=== PATIENT | female | born 1960 | race Hispanic/Latino ===

== ENCOUNTER 2019-04-17 23:46 | Emergency (ER) | payer OTHER ==
[2019-04-18] MEDS ORDERED: KETOROLAC TROMETHAMINE 30MG/ML ONE (00:32)
[2019-04-18] MEDS ORDERED: AMOXICILLIN 500 MG CAPSULE PO ONE (00:32)
== END 2019-04-18 01:49 | disposition home or self-care (01) ==
LOC: EDH 23:46
DX: K04.7 Periapical abscess without sinus (principal); Z98.890 Other specified postprocedural states
CPT/HCPCS: 96372; 99283; J1885

== ENCOUNTER 2019-08-04 23:18 | Emergency (ER) | payer OTHER ==
[2019-08-05] MEDS ORDERED: SODIUM CHLORIDE 0.9% 1000ML 1,000 ML IV ONE (00:38)
[2019-08-05 00:39] LABS: BASOPHILS % (AUTO) 0.9 % (0.0-5.0); EOSINOPHILS % (AUTO) 0.2 % (0.0-8.0); HEMATOCRIT 37.2 % (36-48); LYMPHOCYTES % (AUTO) 36.8 % (21.0-51.0); MEAN CORPUSCULAR HEMOGLOBIN 30.4 pg (27.0-33.0); MEAN CORPUSCULAR HGB CONC 34.5 g/dL (32.0-36.0); MEAN CORPUSCULAR VOLUME 88.2 fL (79-99); MONOCYTES % (AUTO) 6.8 % (3.0-13.0); NEUTROPHILS % (AUTO) 55.3 % (40.0-77.0); NUCLEATED RED BLOOD CELLS 0.1 % (0.0-0.19); PLATELET COUNT (AUTO) 301 K/uL (130-400); RED BLOOD CELL COUNT(AUTO) 4.22 MIL/uL (4.00-5.50); RED CELL DISTRIBUTION WIDTH 13.6 % (11.0-15.5); WHITE BLOOD COUNT (AUTO) 10.3 K/uL (4.8-10.8)
[2019-08-05 00:46] LABS: CREATININE 0.6 mg/dL (0.5-1.5); POTASSIUM 3.7 mmol/L (3.5-5.1)
[2019-08-05 00:47] LABS: APPEARANCE,URINE Clear (CLEAR); BILIRUBIN,URINE Negative (NEGATIVE); COLOR,URINE Yellow (YELLOW); GLUCOSE, URINE (UA) Negative (NEGATIVE); KETONES,URINE Negative (NEGATIVE); LEUKOCYTE ESTERASE ,URINE Negative (NEGATIVE); NITRATE,URINE Negative (NEGATIVE); OCCULT BLOOD,URINE Negative (NEGATIVE); PROTEIN,URINE Negative (NEGATIVE)
[2019-08-05 00:51] LABS: ALBUMIN 3.7 g/dL (3.5-5.0); BILIRUBIN,TOTAL 0.4 mg/dL (0.2-1.0); TOTAL PROTEIN, SERUM 7.3 g/dL (6.0-8.3)
[2019-08-05] MEDS ORDERED: IOHEXOL-350 75 ML VIAL IV ONE (01:09)
== END 2019-08-05 02:18 | disposition home or self-care (01) ==
LOC: EDH 23:18
DX: K43.9 Ventral hernia without obstruction or gangrene (principal); N83.202 Unspecified ovarian cyst, left side; Z72.0 Tobacco use
CPT/HCPCS: 36415; 74177; 80053; 81003; 83690; 85025; 99285; J7030; Q9967

== ENCOUNTER 2019-08-22 00:19 | Emergency (ER) | payer OTHER ==
[2019-08-22] MEDS ORDERED: KETOROLAC TROMETHAMINE 30MG/ML ONE (00:47)
[2019-08-22] MEDS ORDERED: ORPHENADRINE CITRATE 30 MG/ML ML ONE (00:47)
[2019-08-22] MEDS ORDERED: HYDROCODONE/ACETAMINOPHEN 10/325 MG TAB ONE (00:48)
== END 2019-08-22 02:09 | disposition home or self-care (01) ==
LOC: EDH 00:19
DX: M54.12 Radiculopathy, cervical region (principal)
CPT/HCPCS: 72040; 93005; 96374; 96375; 99284; J1885; J2360

== ENCOUNTER 2019-10-31 05:35 | Day surgery (SDC) | payer OTHER ==
[2019-10-30 17:15] LABS: BASOPHILS % (AUTO) 0.5 % (0.0-5.0); EOSINOPHILS % (AUTO) 0.2 % (0.0-8.0); HEMATOCRIT 38.3 % (36-48); LYMPHOCYTES % (AUTO) 39.5 % (21.0-51.0); MEAN CORPUSCULAR HEMOGLOBIN 28.4 pg (27.0-33.0); MEAN CORPUSCULAR HGB CONC 31.6 g/dL (32.0-36.0); MEAN CORPUSCULAR VOLUME 89.9 fL (79-99); MONOCYTES % (AUTO) 6.1 % (3.0-13.0); NEUTROPHILS % (AUTO) 53.5 % (40.0-77.0); PLATELET COUNT (AUTO) 330 K/uL (130-400); RED BLOOD CELL COUNT(AUTO) 4.26 MIL/uL (4.00-5.50); WHITE BLOOD COUNT (AUTO) 9.4 K/uL (4.8-10.8)
[2019-10-30 17:40] VITALS: BP 149/82
[~2019-10-31] VITALS: Ht 154.9 cm; Wt 73.0 kg
[2019-10-31] VITALS (15 sets, daily range): BP systolic 123–186; BP diastolic 60–77
[2019-10-31] MEDS ORDERED: LACTATED RINGERS 1000ML 1,000 ML IV SCH (06:00)
[2019-10-31] MEDS ORDERED: LIDOCAINE PF 2% 5ML ABBOJECT ONE (10:07)
[2019-10-31] MEDS ORDERED: ONDANSETRON HCL 4 MG/2 ML VIAL ONE (10:07)
[2019-10-31] MEDS ORDERED: GLYCOPYRROLATE 1 MG/5 ML SYRINGE ONE (10:08)
[2019-10-31] MEDS ORDERED: ROCURONIUM 10MG/1ML SYR 10 MG/ML ML ONE (10:08)
[2019-10-31] MEDS ORDERED: MIDAZOLAM HCL 1 MG/ML 2ML VIAL ONE (10:08)
[2019-10-31] MEDS ORDERED: PROPOFOL 10 MG/ML 20ML VIAL IV ONE (10:08)
[2019-10-31] MEDS ORDERED: DEXAMETHASONE SOD PHOSPHATE 10MG/ML 1ML VIAL ONE (10:08)
[2019-10-31] MEDS ORDERED: NEOSTIGMINE 5MG/5ML SYR IV ONE (10:08)
[2019-10-31] MEDS ORDERED: FENTANYL CITRATE PF 50 MCG/1 ML 5ML AMP IV ONE (10:09)
[2019-10-31] MEDS ORDERED: EPHEDRINE SULFATE 50 MG/ML AMPULE ONE (10:28)
[2019-10-31] MEDS ORDERED: SUGAMMADEX SODIUM 200 MG/2 ML VIAL IV ONE (11:13)
[2019-10-31] MEDS ORDERED: RACEPINEPHRINE HCL 2.25% 0.5 ML NEB SOLN ONE (11:16)
[2019-10-31] MEDS ORDERED: MEPERIDINE-PF 25 MG/ML SYG ONE ×2 (11:29→11:41)
== END 2019-10-31 12:54 | disposition home or self-care (01) ==
LOC: DAH 05:35
PROVIDERS: ATTEND Obstetrics & Gynecology
DX: R19.09 Other intra-abdominal and pelvic swelling, mass and lump (principal); D25.9 Leiomyoma of uterus, unspecified; Z98.890 Other specified postprocedural states
CPT/HCPCS: 36415; 49320; 85025; 86850; 86900; 86901; 94640; A4215 ×2; A4221; A4222; A4223; A4351; A4510; A4600; A4606; A4649; A4663; A6260; C1769 ×2; J1100; J2001; J2175 ×2; J2250; J2405; J2704; J2710; J3010; J3490 ×2; J7120

== ENCOUNTER 2019-12-19 05:30 | Observation (INO) | payer OTHER ==
[2019-12-18 16:10] VITALS: BP 131/85
[2019-12-18 16:35] LABS: BASOPHILS % (AUTO) 0.8 % (0.0-5.0); EOSINOPHILS % (AUTO) 0.1 % (0.0-8.0); HEMATOCRIT 38.2 % (36-48); LYMPHOCYTES % (AUTO) 40.3 % (21.0-51.0); MEAN CORPUSCULAR HEMOGLOBIN 28.7 pg (27.0-33.0); MEAN CORPUSCULAR HGB CONC 32.2 g/dL (32.0-36.0); MEAN CORPUSCULAR VOLUME 89.3 fL (79-99); NEUTROPHILS % (AUTO) 52.6 % (40.0-77.0); PLATELET COUNT (AUTO) 322 K/uL (130-400); RED BLOOD CELL COUNT(AUTO) 4.28 MIL/uL (4.00-5.50); RED CELL DISTRIBUTION WIDTH 13.2 % (11.0-15.5); WHITE BLOOD COUNT (AUTO) 8.6 K/uL (4.8-10.8)
[~2019-12-19] VITALS: Ht 154.9 cm; Wt 73.3 kg
[2019-12-19] VITALS (24 sets, daily range): BP systolic 129–153; BP diastolic 63–78
[~2019-12-19 05:30] MED LIST: LACTATED RINGERS 1000ML 1,000 ML IV SCH
[2019-12-19] MEDS: CEFAZOLIN SODIUM 1 GM VIAL ONE ×2 (06:49→07:30)
--- NOTE | 2019-12-19 06:49 | NUR ---
antibiotics taken with pt to or
[2019-12-19] MEDS ORDERED: MIDAZOLAM HCL 1 MG/ML 2ML VIAL ONE (07:20)
[2019-12-19] MEDS ORDERED: ONDANSETRON HCL 4 MG/2 ML VIAL ONE (07:20)
[2019-12-19] MEDS ORDERED: LIDOCAINE PF 2% 5ML ABBOJECT ONE (07:23)
[2019-12-19] MEDS ORDERED: ROCURONIUM 10MG/1ML SYR 10 MG/ML ML ONE (07:24)
[2019-12-19] MEDS ORDERED: FENTANYL CITRATE PF 50 MCG/1 ML 2ML VIAL ONE ×2 (07:24→08:23)
[2019-12-19] MEDS ORDERED: PROPOFOL 10 MG/ML 20ML VIAL IV ONE (07:24)
[2019-12-19] MEDS ORDERED: KETAMINE 50MG/ML SYRINGE 50 MG/ML DISP.SYRIN IV ONE (07:33)
[2019-12-19] MEDS ORDERED: EPHEDRINE SULFATE 50 MG/ML AMPULE ONE (07:39)
[2019-12-19] MEDS ORDERED: MAGNESIUM SULFATE 4.06 MEQ/ML ***TPN USE ONLY IJ ONE (07:44)
[2019-12-19] MEDS ORDERED: NEOSTIGMINE 5MG/5ML SYR IV ONE (08:54)
[2019-12-19] MEDS ORDERED: GLYCOPYRROLATE 1 MG/5 ML SYRINGE ONE (08:54)
[2019-12-19] MEDS ORDERED: FENTANYL CITRATE PF 50 MCG/1 ML 5ML AMP IV ONE (08:55)
[2019-12-19] MEDS ORDERED: BISACODYL 10 MG SUPP.RECT RC PRN (10:45)
[2019-12-19] MEDS ORDERED: ONDANSETRON HCL 4 MG/2 ML VIAL IVP PRN (10:45)
[2019-12-19] MEDS ORDERED: IBUPROFEN 600 MG TABLET PO PRN (10:45)
[2019-12-19] MEDS ORDERED: PROMETHAZINE HCL 25 MG/ML 1ML AMPULE IM PRN (10:45)
[2019-12-19] MEDS ORDERED: MEPERIDINE-PF 75 MG/ML SYG IM PRN (10:45)
[2019-12-19] MEDS: DEXTROSE 5 %-0.45 % NACL 1,000 ML IV PRN ×2 (11:21→17:21)
[2019-12-19] MEDS ORDERED: PHARMACY COMMUNICATION MISC SCH (11:45)
[2019-12-19] MEDS: PROMETHAZINE HCL 25 MG/ML 1ML AMPULE IM PRN ×2 (12:04→19:46)
[2019-12-19] MEDS ORDERED: MEPERIDINE-PF 100 MG/ML SYG IM ONE (12:50)
[2019-12-19] MEDS: ACETAMINOPHEN-CODEINE 300/30MG TAB PO PRN (15:58)
--- NOTE | 2019-12-19 17:25 | NUR ---
PATIENT C/O HEADACHE. BP CHECKED: 143/64COLD PACK GIVEN AND PLACED BEHIND NECK. LIGHTS DIMMED AND TV VOLUME LOWERED. PATIENT STATES SHE IS GOING TO TRY TO EAT. CALL LIGHT LEFT IN REACH ADVISED PATIENT TO CALL WITH ANY NEEDS OR CONCERNS.
[2019-12-19] MEDS ORDERED: MEPERIDINE-PF 100 MG/ML SYG ONE (19:33)
[2019-12-20] MEDS: DOCUSATE SODIUM 100 MG CAP PO PRN ×2 (00:05→08:59)
[2019-12-20] MEDS: SIMETHICONE 80 MG TAB.CHEW PO PRN ×2 (00:05→08:59)
[2019-12-20] MEDS: ACETAMINOPHEN-CODEINE 300/30MG TAB PO PRN (00:09)
[2019-12-20] MEDS: DEXTROSE 5 %-0.45 % NACL 1,000 ML IV PRN (01:58)
[2019-12-20 04:13] VITALS: BP 132/81
[2019-12-20 05:42] LABS: HEMATOCRIT 34.5 % (36-48); MEAN CORPUSCULAR HEMOGLOBIN 28.6 pg (27.0-33.0); MEAN CORPUSCULAR HGB CONC 32.2 g/dL (32.0-36.0); MEAN CORPUSCULAR VOLUME 88.9 fL (79-99); PLATELET COUNT (AUTO) 289 K/uL (130-400); RED BLOOD CELL COUNT(AUTO) 3.88 MIL/uL (4.00-5.50); RED CELL DISTRIBUTION WIDTH 13.5 % (11.0-15.5); WHITE BLOOD COUNT (AUTO) 14.1 K/uL (4.8-10.8)
[2019-12-20 07:32] VITALS: BP 140/75
[2019-12-20] MEDS ORDERED: ACET1TAB12 PO (11:22)
[2019-12-20 11:30] VITALS: BP 146/67
--- NOTE | 2019-12-20 12:45 | NUR ---
verbal and written discharge instructions given, informed of the follow up appointment, prescription given, all questions answered, informed to call the doctor for any concerns. pt voiced understanding to all things discussed. Addendum: 12/20/19 at 1258 by TO SYED RN Amended: Links added.
--- NOTE | 2019-12-20 13:05 | NUR ---
pt is dismissed in stable condition, brought to private car by Makayla KWOK Addendum: 12/20/19 at 1307 by TO SYED RN Amended: Links added.
== END 2019-12-20 13:05 | disposition home or self-care (01) ==
LOC: DAH 05:30 → WSH 05:31 → DAH 05:31 → WSH 10:20
PROVIDERS: ADMIT Obstetrics & Gynecology; ATTEND Obstetrics & Gynecology
DX: D25.9 Leiomyoma of uterus, unspecified (principal); N73.6 Female pelvic peritoneal adhesions (postinfective)
CPT/HCPCS: 36415 ×2; 58552; 85025; 85027; 86850; 86900; 86901; 96372; 96374; A4213; A4215 ×2; A4216; A4221; A4222; A4223 ×2; A4344; A4351; A4510; A4600; A4649 ×3; A4663; A4930; A5113; A6260; C1769 ×2; G0378 ×20; J0690; J2001; J2175 ×2; J2250; J2405 ×2; J2550 ×2; J2704; J2710; J3010 ×3; J3475; J3490 ×3; J7030; J7120

== ENCOUNTER 2020-12-17 14:21 | Emergency (ER) | payer OTHER ==
[~2020-12-17 14:21] MED LIST changes: +ACET1TAB12 PO; -LACTATED RINGERS 1000ML 1,000 ML IV SCH
[2020-12-17] MEDS ORDERED: HYDROCODONE/ACETAMINOPHEN 10/325 MG TAB ONE (14:51)
[2020-12-17] MEDS ORDERED: KETOROLAC 60 MG VIAL (30MG/ML) ONE (14:51)
== END 2020-12-17 15:38 | disposition home or self-care (01) ==
LOC: EDH 14:21
DX: M17.11 Unilateral primary osteoarthritis, right knee (principal); Z72.0 Tobacco use; Z98.890 Other specified postprocedural states
CPT/HCPCS: 73560; 96372; 99283; J1885

== ENCOUNTER 2023-11-15 10:16 | Emergency (ER) | payer BC, OTHER ==
[~2023-11-15] VITALS: Ht 152.4 cm; Wt 81.6 kg
[2023-11-15 10:40] LABS: BASOPHILS # (AUTO) 0.06 K/uL (0.00-0.20); BASOPHILS % (AUTO) 0.7 % (0.0-5.0); EOSINOPHILS # (AUTO) 0.01 K/uL (0.00-0.70); EOSINOPHILS % (AUTO) 0.1 % (0.0-8.0); HEMATOCRIT 39.9 % (36-48); IMMATURE GRANULOCYTE ABSOLUTE 0.03 K/uL (0-1); LYMPHOCYTES # (AUTO) 2.7 K/uL (1.0-4.8); LYMPHOCYTES % (AUTO) 31.5 % (21.0-51.0); MEAN CORPUSCULAR HEMOGLOBIN 28.8 pg (27.0-33.0); MEAN CORPUSCULAR HGB CONC 33.1 g/dL (32.0-36.0); MEAN CORPUSCULAR VOLUME 87.1 fL (79-99); MONOCYTES # (AUTO) 0.5 K/uL (0.1-1.0); MONOCYTES % (AUTO) 5.8 % (3.0-13.0); NEUTROPHILS # (AUTO) 5.3 K/uL (1.8-7.7); NEUTROPHILS % (AUTO) 61.6 % (40.0-77.0); PLATELET COUNT (AUTO) 296 K/uL (130-400); RED BLOOD CELL COUNT(AUTO) 4.58 MIL/uL (4.00-5.50); RED CELL DISTRIBUTION WIDTH 13.4 % (11.0-15.5); WHITE BLOOD COUNT (AUTO) 8.7 K/uL (4.8-10.8)
[2023-11-15 10:49] LABS: CREATININE 0.5 mg/dL (0.5-1.5); POTASSIUM 3.7 mmol/L (3.5-5.1)
[2023-11-15 10:54] LABS: ALBUMIN 3.5 g/dL (3.5-5.0); BILIRUBIN,TOTAL 0.5 mg/dL (0.2-1.0); TOTAL PROTEIN, SERUM 7.1 g/dL (6.0-8.3)
[2023-11-15 11:50] LABS: INFLUENZA TYPE A Negative For Type A (NEGATIVE); INFLUENZA TYPE B Negative For Type B (NEGATIVE)
[2023-11-15 11:58] LABS: SARS-CoV-2, RNA, NAAT NEGATIVE SARS CoV-2 (NEGATIVE)
[2023-11-15 12:00] LABS: RAPID GROUP A STREP negative (NEGATIVE)
[2023-11-15] MEDS: HYDRALAZINE 20MG/ML VIAL IV ONE (13:40)
[2023-11-15] MEDS ORDERED: LISI10TA24 PO (15:51)
[2023-11-15 16:49] VITALS: BP 157/74; PULSE 66; RESP 18; O2SAT 99
== END 2023-11-15 17:04 | disposition home or self-care (01) ==
LOC: EDH 10:16
DX: R07.89 Other chest pain (principal); I10 Essential (primary) hypertension; F17.200 Nicotine dependence, unspecified, uncomplicated; Z90.710 Acquired absence of both cervix and uterus; Z98.890 Other specified postprocedural states
CPT/HCPCS: 99284; 96374; 71270; 71045; 87635; 84484 ×2; 80053; 83880; 85025; 85378; 87880; 87804 ×2; 36415; 93005 ×2; J0360

== ENCOUNTER 2025-08-29 16:15 | Emergency (ER) | payer BC ==
[~2025-08-29] VITALS: Ht 152.4 cm; Wt 67.6 kg
[~2025-08-29 16:15] MED LIST changes: +LISI10TA24 PO
--- NOTE | 2025-08-29 16:48 | ERN ---
ED Note History of Present Illness Stated Complaint: BACK PAIN Chief Complaint: Back Pain or Injury Time Seen by MD: 16:29 Dictation: PATIENT IS A 65-YEAR-OLD FEMALE COMING IN TODAY WITH COMPLAINTS OF NON TRAUMA THORACIC PAIN DIFFUSE ONSET WAS THREE WEEKS PRIOR TO ARRIVAL. 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 PRIMARY CARE DOCTOR HAS NOT BEEN TO SEE HER PRIMARY CARE DOCTOR. NO CHEST PAIN, NO SOB NO NAUSEA VOMITING. SHE TOOK NOTHING TODAY PRIOR TO ARRIVAL FOR PAIN. SHE DENIES ANY HISTORY OF PRIOR BACK SURGERIES OR INJURIES. Allergies: Coded Allergies: No Known Allergies (Unverified Allergy, Unknown, 08/22/19) Home Meds Active Scripts Lisinopril (Lisinopril) 10 Mg Tablet, 1 TAB PO DAILY for 30 Days, #30 TAB 0 Refills Prov:SILVIA BAH MD 11/15/23 Reported Medications Acetaminophen with Codeine (Tylenol with Codeine #3 Tablet) 1 Each Tablet, 1 TAB PO Q4HPRN PRN for PAIN LEVEL 5 TO 10, TAB 12/20/19 Past Medical History Past Medical History: Hypertension Additional Past Medical Hx: ENLARGED HEART Surgical History: Hysterectomy, Surgical History Other: RT KNEE SX Social History: Smokers, Lives with family History: Not Applicable RN Note Reviewed/Agreed w/PFSH: Yes Review of System Dictation CONSTITUTIONAL: NEGATIVE EXCEPT FOR HPI HEAD/FACE: NEGATIVE EXCEPT FOR HPI EENT: NEGATIVE EXCEPT FOR HPI RESPIRATORY: NEGATIVE EXCEPT FOR HPI GASTROINTESTINAL/ABDOMINAL: NEGATIVE EXCEPT FOR HPI GENITOURINARY: NEGATIVE EXCEPT FOR HPI MUSCULOSKELETAL: NEGATIVE EXCEPT FOR HPI THORACIC BACK PAIN INTEGUMENTARY: NEGATIVE EXCEPT FOR HPI NEUROLOGICAL/PSYCH: NEGATIVE EXCEPT FOR HPI HEMATOLOGIC/LYMPHATIC: NEGATIVE EXCEPT FOR HPI ALL SYSTEMS NEGATIVE, EXCEPT NOTED ABOVE. 13 POINT REVIEW OF SYSTEMS ASSESSED AND ALL NEGATIVE EXCEPT FOR ABOVE. Initial Vital Sign VS Vital Signs Date Time Temp Pulse Resp B/P (MAP) Pulse Ox O2 Delivery O2 Flow Rate FiO2 08/29/25 16:17 97.9 80 16 111/59 100 Room Air 0 08/29/25 16:54 21 Physical Exam Dictation VITAL SIGNS REVIEWED GENERAL APPEARANCE: ALERT, ORIENTED X 3, NO ACUTE DISTRESS, WELL DEVELOPED, NOURISHED. HEAD AND FACE: NON-TRAUMATIC. EYES: PERRL, PINK CONJUNCTIVAS, EYELID NO TRAUMA, ANTERIOR CHAMBER WITH ARCUS SENILIS. EARS: PINNAS INTACT AND NO SIGNS OF TRAUMA OR ERYTHEMA EAR CANALS CLEAR AND NO DISCHARGE TM NO ERYTHEMA NOSE: NO DISCHARGE, NO BLEEDING. OROPHARYNX: MOUTH NORMAL, TONGUE PINK, PHARYNX CLEAR,NO ERYTHEMA, TONSILS NO EXUDATES, NO ABSCESSES NOTED, MUCOUS MEMBRANE MOIST NECK: SUPPLE, NON-TENDER, NO THYROMEGALY, NO MASSES, NO JVD, NO BRUITS BREAST:DEFERRED CHEST:NO TENDERNESS, NO CREPITUS, NO PARADOXICAL MOVEMENT, NO RETRACTIONS LUNGS:CLEAR, WELL-VENTILATED, SYMMETRIC, NO RALES, NO WHEEZING, NO RHONCHI, NO STRIDOR, GOOD BREATH SOUNDS BILATERALLY HEART: REGULAR RATE, REGULAR RHYTHM, NO MURMUR, NO GALLOPS VASCULAR: NO PERIPHERAL EDEMA, ABDOMEN: SOFT, POSITIVE BOWEL SOUNDS, NONDISTENDED, NO GUARDING, NONTENDER, NO REBOUND, NO MASSES NO HEPATOMEGALY, NO SPLENOMEGALY, NO RODRIGUEZ'S SIGN, NO HERNIAS. RECTAL: DEFERRED GENITAL: DEFERRED NEUROLOGICAL: NORMAL SPEECH, MOTOR FUNCTION INTACT, SENSORY FUNCTION INTACT MUSCULOSKELETAL: NECK NONTENDER, FULL RANGE OF ABDULAZIZ DIFFUSE THORACIC TENDERNESS WITHOUT ANY STEP-OFFS OR MIDLINE PAIN., FULL RANGE OF MOTION, EXTREMITIES: NONTENDER, FULL RANGE OF MOTION SKIN: COLOR PINK, DRY, NO TURGOR, NO RASH, NO LACERATIONS, NO ABRASIONS, NO CONTUSIONS. LYMPHATIC: DEFERRED Results (Laboratory/Radiology) Laboratory/Radiology PROCEDURE: THOR 2VW - THORACIC SPINE 2VWS EXAM: CR Thoracic Spine, 2 View. CLINICAL HISTORY: NON TRAUMA THORACIC PAIN THREE WEEKS COMPARISON: None provided. FINDINGS: BONES: No acute fracture or aggressive appearing osseous lesion. DISCS / DEGENERATIVE CHANGES: Mild to moderate thoracic spondylosis and multilevel degenerative disc disease, more pronounced at T10-T11. SOFT TISSUES: The paraspinal soft tissue lines are unremarkable. The visualized lungs are clear. MISCELLANEOUS: Visualization of the upper thoracic spine is limited on the lateral view by overlying structures. IMPRESSION: 1. No acute osseous injury. /E Labs Reviewed?: Yes EKG Comment: 1634/EKG SINUS RHYTHM/HEART RATE 71/AXIS NORMAL/NONSPECIFIC INTRAVENTRICULAR CONDUCTION DELAY V1 TWO AND THREE ED Course ED Course Orders Procedure Category Date Status Time Thoracic Spine 2vws RAD 08/29/25 Resulted 16:37 Ketorolac 60mg/2ml PHA 08/29/25 Complete (Toradol 60mg/2ml) 17:00 Cyclobenzaprine Hcl PHA 08/29/25 Complete (Cyclobenzaprine Hcl 17:00 12 Lead Ekg Tracing- EKG 08/29/25 Logged Technical 16:37 Current Medications Medications (Trade) Dose Ordered Sig/Amandeep Route PRN Reason Start Time Stop Time Status Last Admin Dose Admin Cyclobenzaprine HCl (Cyclobenzaprine HCl) 10 mg ONCE ONCE PO 08/29/25 17:00 08/29/25 17:01 DC Ketorolac Tromethamine (toRADol 60MG/ 2ML) 60 mg ONCE ONCE IM 08/29/25 17:00 08/29/25 17:01 DC Vital Signs Date Time Temp Pulse Resp B/P (MAP) Pulse Ox O2 Delivery O2 Flow Rate FiO2 08/29/25 16:54 98.2 69 18 114/61 99 Room Air* 0 21 08/29/25 16:17 97.9 80 16 111/59 100 Room Air 0 1730/PATIENT STATES PAIN IS IMPROVED AFTER TREATMENT. SHE WAS REFERRED BACK TO HER PRIMARY CARE DOCTOR AND WE WILL BE WRITTEN OUT OF WORK UNTIL MEDICALLY CLEARED BY HIM Medical Decision Making MDM MEDICAL DECISION-MAKING BASED ON EMPIRIC TREATMENT FOR ACUTE BACK PAIN T-SPINE X-RAY NEGATIVE EKG NO SPECIFIC CHANGES PATIENT DISCHARGED HOME WITH IBUPROFEN AND FLEXERIL TOLD NO WORK UNTIL CLEARED BACK BY HER PRIMARY CARE DX & DISP Disposition: Discharge Departure Impression: Primary Impression: Acute thoracic myofascial strain Condition: Stable Scripts Cyclobenzaprine HCl (Cyclobenzaprine HCl) 10 Mg Tablet 1 TAB PO TID for muscle spasms for 10 Days, #30 TAB 0 Refills Prov: PAOLO RICHARDSON 08/29/25 Ibuprofen (Ibuprofen) 600 Mg Tablet 600 MG PO Q6H PRN for PAIN, #30 TAB Prov: PAOLO RICHARDSONP 08/29/25 Additional Instructions: FOLLOW-UP WITH PRIMARY CARE PROVIDER IN 1 TO 2 DAYS. TAKE MEDICATIONS DIRECTED HERE IN THE EMERGENCY ROOM. OKAY TO CONTINUE HOME MEDICATIONS UNLESS OTHERWISE DISCUSSED DURING YOUR VISIT IN THE EMERGENCY ROOM TODAY. RETURN TO YOUR NEAREST EMERGENCY ROOM IF SYMPTOMS WORSEN OR IF THERE IS NO IMPROVEMENT. CALL 911 IF YOU NEED IMMEDIATE ASSISTANCE. TAKE TYLENOL OR MOTRIN [id number] NEEDED AND IF NO CONTRAINDICATIONS ARE PRESENT. INCREASE ORAL HYDRATION. A WOUND CULTURE OR URINE CULTURE WAS ORDERED HERE IN THE EMERGENCY ROOM DEPARTMENT PLEASE FOLLOW-UP WITH PRIMARY CARE PROVIDER AND ADVISE THEM TO GET REPEAT PORTS FROM OUR FACILITY. IF YOU HAD ANY BELA WRAP/SPLINTS THAT WERE APPLIED HERE, PLEASE DO NOT REMOVE THEM UNTIL YOU SEE YOUR PRIMARY CARE OR SPECIALTY. TAKE IBUPROFEN AND FLEXERIL EVERY 8 HOURS WITH FOOD FOR THE NEXT THREE DAYS. NO WORK UNTIL CLEARED BY YOUR PRIMARY CARE DOCTOR, NO LIFTING GREATER THAN 10 LB UNTIL CLEARED BY YOUR DOCTOR. WARM COMPRESSES PAIN THREE TO 4 TIMES A DAY. Referrals: VIK CANALES (PCP) Time of Disposition: 17:31 I have reviewed the case, and I agree with, Diagnosis and Plan PAOLO RICHARDSON MACHINE STOPPAGE FREQUENCY CHECKER Aug 29, 2025 16:48
--- NOTE | 2025-08-29 17:12 | HMCIMG ---
EXAM: CR Thoracic Spine, 2 View. CLINICAL HISTORY: NON TRAUMA THORACIC PAIN THREE WEEKS COMPARISON: None provided. FINDINGS: BONES: No acute fracture or aggressive appearing osseous lesion. DISCS / DEGENERATIVE CHANGES: Mild to moderate thoracic spondylosis and multilevel degenerative disc disease, more pronounced at T10-T11. SOFT TISSUES: The paraspinal soft tissue lines are unremarkable. The visualized lungs are clear. MISCELLANEOUS: Visualization of the upper thoracic spine is limited on the lateral view by overlying structures. IMPRESSION: 1. No acute osseous injury. /[place]
[2025-08-29] MEDS: CYCLOBENZAPRINE HCL 10 MG TABLET PO ONE (17:29)
[2025-08-29] MEDS ORDERED: IBUP-1492 PO (17:32)
[2025-08-29] MEDS ORDERED: CYCL-309 PO (17:32)
[2025-08-29 19:09] VITALS: BP 134/56; PULSE 61; RESP 18; TEMP 98; O2SAT 99
--- NOTE | 2025-08-29 19:17 | NUR ---
REPORT GIVEN TO BRITNI VALENZUELA RN FOR CONTIUITY OF CARE AND DISCHARGE.
--- NOTE | 2025-08-29 20:27 | EKG ---
[facility] Test Date: 2025-08-29 Test Time: 16:34:50 Pat Name: JENNA CHIN Department: ED Room: Gender: F Complaint Analyst: [id number] : 1960 Requested By: PAOLO RICHARDSON Order Number: [id number] Reading MD: Brigida Starr Measurements Intervals [place] Rate: 71 P: -1 OK: 184 QRS: 19 QRSD: 116 T: -9 QT: 424 QTc: 462 Interpretive Statements Sinus rhythm Nonspecific intraventricular conduction delay Compared to ECG 11/15/2023 14:16:12 Intraventricular conduction delay now present Left-axis deviation no longer present Electronically Signed On 08-31-2025 08:49:17 CONTRACT ASSISTANT by Brigida Starr Please click the below link to view image of tracing.
== END 2025-08-29 19:22 | disposition home or self-care (01) ==
LOC: EDH 16:15
DX: S29.012A Strain of muscle and tendon of back wall of thorax, initial encounter (principal); F17.200 Nicotine dependence, unspecified, uncomplicated; I10 Essential (primary) hypertension; Z79.899 Other long term (current) drug therapy; Z90.710 Acquired absence of both cervix and uterus; X58.XXXA Exposure to other specified factors, initial encounter; Y93.89 Activity, other specified; Y92.89 Other specified places as the place of occurrence of the external cause; Y99.8 Other external cause status
CPT/HCPCS: 99284; 72070; 96372; 93005; J1885